=== PATIENT | male | born 1950 | race African-American/Black ===

== ENCOUNTER 2020-07-06 14:57 | Day surgery (SDC) | payer MEDICARE, OTHER ==
[2020-07-06] MEDS ORDERED: Fluorouracil 100 MG, Enoxaparin Sodium 25 MG, EPINEPHrine 0.3 MG, Dextrose 50% 3 ML in ... IRR SCH (15:15)
[2020-07-06] MEDS ORDERED: Cyclopentolate 1% Opth Drop 2 ML BOT FS SCH (15:15)
[2020-07-06] MEDS ORDERED: Phenylephrine 2.5% Ophth Soln 5 ML BOT FS SCH (15:15)
[2020-07-06] MEDS ORDERED: Cyclopentolate 1% Ophth Drops 15 ML BOT ONE (15:21)
[2020-07-06] MEDS ORDERED: Phenylephrine 2.5% Ophth Soln 5 ML BOT ONE (15:22)
[2020-07-06] MEDS ORDERED: Fluorouracil 100 MG, Enoxaparin Sodium 25 MG, EPINEPHrine 0.3 MG in Ophthalmic Irrigati... IRR SCH (16:00)
[2020-07-06] MEDS ORDERED: Fentanyl 100 MCG/2 ML VIAL ONE (16:22)
[2020-07-06] MEDS ORDERED: Ondansetron PF 4 MG/2 ML Vial ONE (17:30)
[2020-07-06] MEDS ORDERED: Triamcinolone 40 MG/ML VIAL ONE (17:30)
[2020-07-06] MEDS ORDERED: Lidocaine 4% PF 5 ML AMP ONE (17:30)
[2020-07-06] MEDS ORDERED: Maxitrol 0.1% Opth Oint 3.5 GM TUBE ONE (17:30)
[2020-07-06] MEDS ORDERED: Bupivacaine PF 0.75% SDV 10 ML ONE (17:30)
[2020-07-06] MEDS ORDERED: CEFAZOLIN 1 GM VIAL ONE (17:30)
[2020-07-06] MEDS ORDERED: PHENYLEPHRINE-NS 100 MCG/ML 10 ML SYRINGE ONE (17:30)
[2020-07-06] MEDS ORDERED: Lidocaine 1% PF 5 ML VIAL ONE ×2 (17:30)
[2020-07-06] MEDS ORDERED: PROPOFOL 200 MG/20 ML VIAL ONE (17:30)
[2020-07-06] MEDS ORDERED: Enoxaparin Sodium 30 MG/0.3 ML SYRINGE ONE (17:30)
== END 2020-07-06 21:00 | disposition home or self-care (01) ==
LOC: SDC 14:57
PROVIDERS: ATTEND Ophthalmology Retina Specialist
PROC: 08T43ZZ Resection of Right Vitreous, Percutaneous Approach (ICD-10-PCS; principal; 2020-07-06)
DX: H33.031 Retinal detachment with giant retinal tear, right eye (principal); H35.412 Lattice degeneration of retina, left eye
CPT/HCPCS: 67113; C1814; J0171; J0690; J1650; J2405; J2704; J3010; J3301; J3490; J9190

== ENCOUNTER 2020-11-08 | Day surgery (SDC) | payer MEDICARE, OTHER | END 2020-11-08 09:00 | disposition home or self-care (01) | PROC: 08T43ZZ Resection of Right Vitreous, Percutaneous Approach (ICD-10-PCS; principal; 2020-11-08) | PROC: 08NE3ZZ Release Right Retina, Percutaneous Approach (ICD-10-PCS; 2020-11-08) ==